=== PATIENT | male | born 1970 | race Caucasian/White ===

== ENCOUNTER 2020-07-22 05:08 | Day surgery (SDC) | payer OTHER ==
[2020-07-19 16:06] VITALS: BMI 50.4
[2020-07-22] MEDS ORDERED: PROPOFOL 20 ML ONE ×3 (10:19)
[2020-07-22] MEDS ORDERED: LIDOCAINE VISCOUS 2% ORAL/TOP 20 ML UNIT-DOSE CUP ONE (10:40)
[2020-07-22 11:16] VITALS: TEMP 98
[2020-07-22 12:01] VITALS: BP 142/72; PULSE 58
== END 2020-07-22 11:55 | disposition home or self-care (01) ==
LOC: JASU-ENDO 05:08
PROVIDERS: ATTEND Internal Medicine Gastroenterology
PROC: 0DB68ZX Excision of Stomach, Via Natural or Artificial Opening Endoscopic, Diagnostic (ICD-10-PCS; 2020-07-22)
PROC: 0DB48ZX Excision of Esophagogastric Junction, Via Natural or Artificial Opening Endoscopic, Diagnostic (ICD-10-PCS; principal; 2020-07-22 10:00)
DX: K21.0 Gastro-esophageal reflux disease with esophagitis (principal); K29.50 Unspecified chronic gastritis without bleeding; K44.9 Diaphragmatic hernia without obstruction or gangrene; K31.7 Polyp of stomach and duodenum
CPT/HCPCS: 88305-TC; 88342-TC

== ENCOUNTER 2020-08-10 05:16 | Day surgery (SDC) | payer OTHER ==
[2020-08-10 10:09] VITALS: BMI 47.9
[2020-08-10 12:08] VITALS: BP 124/53; PULSE 52; TEMP 98
--- NOTE | 2020-08-12 12:21 | PATH ---
Surgical Pathology Report Patient Name: CELINA DENG [facility]. Rec. #: [id number] /Age/Gender: 1970 (Age: 50) / M Account: [id number] Location: [facility] Taken: 08/10/2020 Received: 08/10/2020 Reported: 08/12/2020 Physicians: Jin Dan D.O. Specimen(s) Received DESCENDING COLON POLYP Clinical History Colon cancer screening Postoperative diagnosis: Descending colon polyp and hemorrhoids Final Diagnosis DESCENDING COLON, POLYP, POLYPECTOMY: HYPERPLASTIC POLYP. Electronically Signed Adenike Panchal M.D. Gross Description Received in formalin, labeled "descending colon polyp" is a scruggs, irregular portion of soft tissue measuring 0.3 cm. in greatest dimension. The specimen is submitted in toto in one cassette. /08/10/2020 [facility]08/10/2020
== END 2020-08-10 11:50 | disposition home or self-care (01) ==
LOC: JASU-SURG 05:16
PROVIDERS: ATTEND Internal Medicine Gastroenterology
PROC: 0DBM8ZX Excision of Descending Colon, Via Natural or Artificial Opening Endoscopic, Diagnostic (ICD-10-PCS; principal; 2020-08-10 10:30)
DX: Z12.11 Encounter for screening for malignant neoplasm of colon (principal); D12.4 Benign neoplasm of descending colon; K64.8 Other hemorrhoids
CPT/HCPCS: 88305-TC